=== PATIENT | male | born 1950 ===

== ENCOUNTER 2018-05-16 21:59 | Inpatient (IN) | payer MEDICARE, OTHER ==
--- NOTE | 2018-05-16 22:45 | C.PDOC ---
History Of Present Illness 67 year old male with a Hx of HTN presents to the ER with LUQ pain for the past 2 years that worsens when he drives. He was given antibiotics by his PMD in [facility] Dr. Bustillos(phone# [phone]). Patient was placed on cipro which he completed on 05/05/18. Today he had an outpatient CT done which showed micro perforation. Denies fever, chills, night sweats, constipation, or diarrhea. Note he as told by his PMD Dr. Bustillos to visit the nearest ER for possible admission and IV antibiotics. Time Seen by Provider: 05/16/18 22:33 Chief Complaint (Nursing): Abdominal Pain History Per: Patient History/Exam Limitations: no limitations Onset/Duration Of Symptoms: Days (2 years) Current Symptoms Are (Timing): Still Present Location Of Pain/Discomfort: LUQ Quality Of Discomfort: Unable To Describe Exacerbating Factors: Other (Driving) Alleviating Factors: None Recent travel outside of the [place]: No Past Medical History Reviewed: Historical Data, Nursing Documentation, Vital Signs Vital Signs: Last Vital Signs Temp 97.9 F 05/16/18 22:11 Pulse 68 05/16/18 22:11 Resp 18 05/16/18 22:11 BP 130/81 05/16/18 22:11 Pulse Ox 94 L 05/16/18 22:11 - Medical History PMH: HTN Family History: States: Unknown Family Hx - Social History Hx Tobacco Use: No Hx Alcohol Use: No Hx Substance Use: No - Immunization History Hx Tetanus Toxoid Vaccination: No Hx Influenza Vaccination: No Hx Pneumococcal Vaccination: No Review Of Systems Except As Marked, All Systems Reviewed And Found Negative. Constitutional: Negative for: Fever, Chills, Sweats Eyes: Negative for: Pain, Vision Change ENT: Negative for: Ear Pain, Ear Discharge Cardiovascular: Negative for: Chest Pain, Palpitations Respiratory: Negative for: Cough, Shortness of Breath, SOB with Excertion, Pleuritic Pain Gastrointestinal: Positive for: Abdominal Pain. Negative for: Nausea, Vomiting, Diarrhea, Constipation, Melena, Hematochezia, Hematemesis Genitourinary: Negative for: Dysuria, Incontinence, Hematuria, Penile Discharge Musculoskeletal: Negative for: Neck Pain, Shoulder Pain Skin: Negative for: Rash, Lesions Neurological: Negative for: Weakness, Numbness Psych: Negative for: Anxiety Physical Exam - Physical Exam Appears: Well, Non-toxic Skin: Normal Color, Warm, Dry Head: Atraumatic, Normacephalic Eye(s): bilateral: Normal Inspection, PERRL, EOMI Ear(s): Bilateral: Normal Nose: Normal Oral Mucosa: Moist Tongue: Normal Appearing Lips: Normal Appearing Teeth: Normal Dentition Gingiva: Normal Appearing Throat: Normal, No Erythema, No Exudate Neck: Trachea Midline, Supple, Other (no meningeal signs) Chest: Symmetrical, No Tenderness Cardiovascular: Rhythm Regular Respiratory: Normal Breath Sounds, No Rales, No Rhonchi, No Wheezing Gastrointestinal/Abdominal: Soft, Tenderness (LUQ), No Guarding, No Rebound Back: Normal Inspection, No CVA Tenderness, No Vertebral Tenderness Extremity: Bilateral: Atraumatic Neurological/Psych: Oriented x3, Normal Speech, Normal Cognition Gait: Steady ED Course And Treatment - Laboratory Results Result Diagrams: 05/16/18 23:16 05/16/18 23:16 O2 Sat by Pulse Oximetry: 94 (Room air) Pulse Ox Interpretation: Normal - CT Scan/US CT abd/pel Other Rad Studies (CT/US): Read By Radiologist, Radiology Report Reviewed CT/US Interpretation: CT SCAN OF THE ABDOMEN AND PELVIS WITH CONTRAST. CLINICAL HISTORY: Left lower quadrant pain. TECHNIQUE: Multiple axial and coronal CT images were obtained through the abdomen and pelvis after administration of intravenous and oral contrast material. COMMENTS: Diffuse thickening of the sigmoid colon. Colonic diverticulosis. Small sliding hiatal hernia. The liver is of uniform attenuation without mass or defect. There is no intra or extrahepatic biliary ductal dilatation. The spleen is normal. The gallbladder is within normal limits. The pancreas is of normal contour and attenuation characteristics. There is no evidence of adrenal mass. Both kidneys demonstrate prompt and equal nephrograms. The kidneys are normal in size, shape and configuration. There is no evidence of renal or ureteral mass. No renal or ureteral calculi are identified. There is no hydroureter or hydronephrosis. No evidence for appendicitis. No evidence for small or large bowel obstruction. There is no evidence of abdominal ascites or lymphadenopathy. There is no evidence of intrinsic or extrinsic bladder mass. There is no pelvic ascites or lymphadenopathy. Mild prostatomegaly. Images of the lung bases show no evidence of pleural or parenchymal mass. There are no pleural effusions. The bony structures are free of lytic or blastic lesions. IMPRESSION: Uncomplicate d sigmoid diverticulitis/colitis. Medical Decision Making Medical Decision Makin yr old male w/ concern for micro-perforation on CT. Well appearing in NAD. Will seek repeat non-ct w/ contrast given IV contrast used earlier today. He denies any complaints. No chest pain or shortness of breath. No fever, chills or night sweats. Spoke with Dr. Bustillos in regards to outpatient CT results, he sent a copy which showed acute diverticulitis with small contained perforation and 2.4cm abscess. labs unremarkable. Appreciate consult w/ Dr. Brice: to admit to medicine and to place consult to ID Appreciate consult w/ Dr. Pati Chavez: to admit to his service. Disposition - Disposition Disposition Time: 00:30 Condition: GOOD Forms: [facility] (Mauritian) - Clinical Impression Clinical Impression: Diverticulitis, Intra-abdominal infection - Scribe Statement The provider has reviewed the documentation as recorded by the Scribkathy Angela All medical record entries made by the Oliveribkathy were at my direction and personally dictated by me. I have reviewed the chart and agree that the record accurately reflects my personal performance of the history, physical exam, medical decision making, and the department course for this patient. I have also personally directed, reviewed, and agree with the discharge instructions and disposition.
[2018-05-16] MEDS ORDERED: Sodium Chloride 0.9% 1,000 ML IV SCH (23:00)
[2018-05-16 23:19] LABS: BASO # 0.1 K/uL (0.0-0.2); BASO % 0.7 % (0.0-2.0); EOS # 0.2 K/uL (0.0-0.7); EOS % 1.9 % (0.0-4.0); LYMPH # 2.4 K/uL (1.0-4.3); LYMPH % 22.7 % (20.0-40.0); MEAN CORPUSCULAR HEMOGLOBIN 27.3 pg (27.0-31.0); MEAN CORPUSCULAR HGB CONC 32.5 g/dL (33.0-37.0); MEAN PLATELET VOLUME 7.9 fL (7.2-11.7); MONO % 9.2 % (0.0-10.0); NEUT # 6.9 K/uL (1.8-7.0); NEUT % 65.5 % (50.0-75.0); RBC 5.49 Mil/uL (4.40-5.90); RED CELL DISTRIBUTION WIDTH 14.9 % (11.5-14.5); WHITE BLOOD COUNT 10.5 K/uL (4.8-10.8)
[2018-05-16 23:31] LABS: ALB/GLOB RATIO 1.3 (1.0-2.1); ALBUMIN 3.6 g/dL (3.5-5.0); ALT/SGPT 31 U/L (21-72); AST/SGOT 21 U/L (17-59); BLOOD UREA NITROGEN 18 mg/dL (9-20); CALCIUM 8.7 mg/dl (8.6-10.4); GFR NON-AFRICAN AMERICAN > 60; LIPASE 46 U/L (23-300)
[2018-05-16] MEDS ORDERED: Ciprofloxacin 400mg/200ml D5W 400 MG/200 ML BAG IVPB STA (23:35)
[2018-05-16] MEDS ORDERED: metroNIDAZOLE IV 500 mg/100 ml 500 MG/100 ML BAG IVPB STA (23:35)
[2018-05-16 23:41] LABS: VENOUS BLOOD GAS BASE EXCESS 1.9 mmol/L (0.0-2.0); VENOUS BLOOD GAS PCO2 41 mmHg (40-60); VENOUS BLOOD GAS PO2 56 mm/Hg (30-55); VENOUS BLOOD PH 7.42 (7.32-7.43)
[2018-05-17] MEDS ORDERED: Ciprofloxacin 400mg/200ml D5W 400 MG/200 ML BAG IVPB ONE (00:25)
[2018-05-17] MEDS ORDERED: metroNIDAZOLE IV 500 mg/100 ml 500 MG/100 ML BAG ONE ×2 (00:25→06:07)
[2018-05-17] MEDS ORDERED: Ciprofloxacin 400mg/200ml D5W 400 MG/200 ML BAG IVPB SCH (06:00)
[2018-05-17] MEDS ORDERED: Dextrose 5%/0.9% NS 1,000 ML IV SCH (06:00)
[2018-05-17] MEDS: metroNIDAZOLE IV 500 mg/100 ml 500 MG/100 ML BAG IVPB SCH ×3 (06:10→22:41)
--- NOTE | 2018-05-17 09:42 | CP.PCM.CON ---
<JesusamericaglendyOchoa - Last Filed: 05/17/18 14:05> History of Present Illness - History of Present Illness History of Present Illness: GI Fellow PGY4, Consult note. Alex Bonner is a very pleasant 67M who presented to ED for CT findings of diverticulitis and possible need for IV Abx. He tells me he has been complaining of mild abdominal discomfort of the LUQ for 2 years, made worse with sitting in his truck and relieved with laying on his back. He denies acid reflux, pain with eating, pain with BMs, blood in stool, change in weight, constipation. He is not complaining of abdominal pain at this time, no fevers, nausea or vomiting. Work-up showed CT evidence of diverticulitis, uncomplicated. PMHx - Obesity, HTN PSHx - EGD 2 years ago in [place], reports no abnormal findings. Reports colonoscopy 2-3 years ago, normal. FMHx - Denies stomach, colon cancer, liver problems. SocHx - Denies smoking, alcohol. 12pt ROS completed and negative except for above. Past Patient History - Past Social History Smoking Status: Never Smoked - CARDIAC Hx Hypertension: Yes - MUSCULOSKELETAL/RHEUMATOLOGICAL Hx Musculoskeletal Disorders: Yes Other/Comment: Rt knee surgery 2016 - PSYCHIATRIC Hx Substance Use: No - SURGICAL HISTORY Hx Surgeries: No - ANESTHESIA Hx Anesthesia: Yes Hx Anesthesia Reactions: No Meds Allergies/Adverse Reactions: Allergies Allergy/AdvReac Type Severity Reaction Status Date / Time No Known Allergies Allergy Verified 05/16/18 22:18 - Medications Medications: Current Medications Dextrose/Sodium Chloride (Dextrose 5%/0.9% Ns 1000 Ml) 1,000 mls @ 100 mls/hr IV .Q10H ALICIA Last Admin: 05/17/18 06:08 Dose: 100 mls/hr Metronidazole (Flagyl) 500 mg in 100 mls @ 100 mls/hr IVPB Q8H ALICIA; Protocol Last Admin: 05/17/18 06:10 Dose: 100 mls/hr Ciprofloxacin (Cipro 400mg/200ml Dsw) 400 mg in 200 mls @ 133 mls/hr IVPB Q12H ALICIA; Protocol Pantoprazole Sodium (Protonix Inj) 40 mg IVP DAILY ALICIA Physical Exam - Constitutional Appears: Non-toxic, No Acute Distress - Head Exam Head Exam: ATRAUMATIC, NORMAL INSPECTION - Eye Exam Eye Exam: EOMI, Normal appearance - ENT Exam ENT Exam: Mucous Membranes Moist, Normal Exam - Respiratory Exam Respiratory Exam: Clear to Auscultation Bilateral, NORMAL BREATHING PATTERN - Cardiovascular Exam Cardiovascular Exam: REGULAR RHYTHM, +S1, +S2 - GI/Abdominal Exam GI & Abdominal Exam: Normal Bowel Sounds, Soft. absent: Guarding, Organomegaly, Rebound, Tenderness - Extremities Exam Extremities exam: Positive for: normal inspection. Negative for: pedal edema - Neurological Exam Neurological exam: Alert, CN II-XII Intact, Oriented x3 - Psychiatric Exam Psychiatric exam: Normal Affect, Normal Mood - Skin Skin Exam: Normal Color, Warm Results - Vital Signs Recent Vital Signs: Last Vital Signs Temp 98.6 F 05/17/18 06:26 Pulse 58 L 05/17/18 06:26 Resp 18 05/17/18 06:26 BP 136/81 05/17/18 06:26 Pulse Ox 98 05/17/18 06:26 - Labs Result Diagrams: 05/16/18 23:16 05/16/18 23:16 Labs: Laboratory Results - last 24 hr 05/16/18 05/16/18 05/16/18 23:16 23:16 23:38 WBC 10.5 RBC 5.49 Hgb 15.0 Hct 46.1 MCV 84.0 MCH 27.3 MCHC 32.5 L RDW 14.9 H Plt Count 277 MPV 7.9 Neut % (Auto) 65.5 Lymph % (Auto) 22.7 [place] % (Auto) 9.2 Eos % (Auto) 1.9 Baso % (Auto) 0.7 Neut # (Auto) 6.9 Lymph # (Auto) 2.4 [place] # (Auto) 1.0 H Eos # (Auto) 0.2 Baso # (Auto) 0.1 pO2 56 H VBG pH 7.42 VBG pCO2 41 VBG HCO3 26.2 VBG Total CO2 27.9 VBG O2 Sat (Calc) 94.2 H VBG Base Excess 1.9 VBG Potassium 3.6 Glucose 206 H Lactate 1.5 Sodium 136 136.0 Potassium 3.9 Chloride 102 103.0 Carbon Dioxide 27 Anion Gap 11 BUN 18 Creatinine 0.8 Est GFR ( Amer) > 60 Est GFR (Non-Af Amer) > 60 Random Glucose 205 H Calcium 8.7 Total Bilirubin 0.3 AST 21 ALT 31 Alkaline Phosphatase 87 Total Protein 6.4 Albumin 3.6 Globulin 2.8 Albumin/Globulin Ratio 1.3 Lipase 46 Venous Blood Potassium 3.6 Assessment & Plan - Assessment and Plan (Free Text) Assessment: #Suspected Uncomplicated diverticulitis, no significant pain #Abnormal CT #HTN #Obesity PLAN: -CT reviewed, evidence of diffuse diverticulosis and some evidence of wall thickening. No obvious fat stranding, but CT is poor quality given body habitus. -Continue 7-10day coarse antibiotics -Patient should have colonoscopy in 4-8 weeks to evaluate for cause of chronic abdominal pain and abnormal CT findings, r/o colon CA. -OK to start Liquid diet and advance as tolerated. -No endoscopic procedures planned. - Date & Time Date: 05/17/18 Time: 09:43 <Marquise Schroeder Y - Last Filed: 05/17/18 15:08> Meds - Medications Medications: Current Medications Dextrose/Sodium Chloride (Dextrose 5%/0.9% Ns 1000 Ml) 1,000 mls @ 100 mls/hr IV .Q10H ALICIA Last Admin: 05/17/18 06:08 Dose: 100 mls/hr Metronidazole (Flagyl) 500 mg in 100 mls @ 100 mls/hr IVPB Q8H ALICIA; Protocol Last Admin: 05/17/18 14:51 Dose: 100 mls/hr Ciprofloxacin (Cipro 400mg/200ml Dsw) 400 mg in 200 mls @ 133 mls/hr IVPB Q12H ALICIA; Protocol Last Admin: 05/17/18 12:44 Dose: 133 mls/hr Pantoprazole Sodium (Protonix Inj) 40 mg IVP DAILY ALICIA Last Admin: 05/17/18 09:54 Dose: 40 mg Results - Vital Signs Recent Vital Signs: Last Vital Signs Temp 98.6 F 05/17/18 06:26 Pulse 58 L 05/17/18 06:26 Resp 18 05/17/18 06:26 BP 136/81 05/17/18 06:26 Pulse Ox 98 05/17/18 06:26 - Labs Result Diagrams: 05/16/18 23:16 05/16/18 23:16 Labs: Laboratory Results - last 24 hr 05/16/18 05/16/18 05/16/18 23:16 23:16 23:38 WBC 10.5 RBC 5.49 Hgb 15.0 Hct 46.1 MCV 84.0 MCH 27.3 MCHC 32.5 L RDW 14.9 H Plt Count 277 MPV 7.9 Neut % (Auto) 65.5 Lymph % (Auto) 22.7 [place] % (Auto) 9.2 Eos % (Auto) 1.9 Baso % (Auto) 0.7 Neut # (Auto) 6.9 Lymph # (Auto) 2.4 [place] # (Auto) 1.0 H Eos # (Auto) 0.2 Baso # (Auto) 0.1 pO2 56 H VBG pH 7.42 VBG pCO2 41 VBG HCO3 26.2 VBG Total CO2 27.9 VBG O2 Sat (Calc) 94.2 H VBG Base Excess 1.9 VBG Potassium 3.6 Glucose 206 H Lactate 1.5 Sodium 136 136.0 Potassium 3.9 Chloride 102 103.0 Carbon Dioxide 27 Anion Gap 11 BUN 18 Creatinine 0.8 Est GFR ( Amer) > 60 Est GFR (Non-Af Amer) > 60 Random Glucose 205 H Calcium 8.7 Total Bilirubin 0.3 AST 21 ALT 31 Alkaline Phosphatase 87 Total Protein 6.4 Albumin 3.6 Globulin 2.8 Albumin/Globulin Ratio 1.3 Lipase 46 Venous Blood Potassium 3.6 Attending/Attestation - Attestation I have personally seen and examined this patient.: Yes I have fully participated in the care of the patient.: Yes I have reviewed all pertinent clinical information: Yes Notes (Text): 05/17/18 15:02 I have seen and examined patient with GI fellow. Agree with above documentation with the following additions. In brief, this is a 67 year old male with history of obesity (BMI 45), HTN, who presents to hospital with complaint of abdominal pain. He reports ongoing intermittent left sided abdominal pain for the past two years which got worse over the past one week. He reports sharp LLQ abdominal pain, 7/10 intensity, with associated loose bowel movements. He had outpatient CT imaging concerning for diverticulitis and was sent to hospital for further management. He denies nausea, vomiting, fever/chills, weight loss, rectal bleeding. He does report having multiple loose bowel movements since beginning antibiotic therapy. He had an EGD/colonoscopy 3 years ago which were normal as per patient. Review of vitals from today are normal. Obesity HTN Abdominal pain Acute rectosigmoid uncomplicated diverticulitis - present on CT imaging, revie wed by me - Clear liquid diet as tolerated - Continue with antibiotic therapy - Continue with IVF hydration, supportive care - Patient would benefit from elective outpatient colonoscopy 6-8 weeks following resolution of acute symptoms. Will continue to monitor patient clinical course.
--- NOTE | 2018-05-17 11:10 | CT ---
PROCEDURE: CT Abdomen and Pelvis without Oral or IV contrast. HISTORY: "microperferation from outside ct" abd pain x2 yr COMPARISON: None available. TECHNIQUE: Contiguous axial images of the abdomen and pelvis. No oral or IV contrast administered. Coronal and Sagittal reformats generated and reviewed. Radiation dose: Total exam DLP = 1187.74 mGy-cm. This CT exam was performed using one or more of the following dose reduction techniques: Automated exposure control, adjustment of the mA and/or kV according to patient size, and/or use of iterative reconstruction technique. FINDINGS: There is limited evaluation of the solid organs without the administration of IV contrast. LOWER THORAX: Bibasilar atelectasis. No visible pleural effusion or pneumothorax. Small hiatal hernia. LIVER: Unremarkable unenhanced appearance. GALLBLADDER AND BILE DUCTS: Unremarkable unenhanced appearance. PANCREAS: Atrophy. SPLEEN: Unremarkable unenhanced appearance. ADRENALS: Unremarkable unenhanced appearance. KIDNEYS AND URETERS: No hydronephrosis or obstructing renal calculus. BLADDER: The urinary bladder appears unremarkable. REPRODUCTIVE: Unremarkable. APPENDIX: The appendix appears within normal limits of caliber. No secondary signs of acute appendicitis. BOWEL: The stomach is nondistended. Lack of oral contrast limits evaluation for bowel pathology. The bowel loops appear within normal limits of caliber without evidence of intestinal obstruction. Circumferential thickening of the rectosigmoid colon can be seen in setting of chronic diverticulosis. Mild associated inflammatory changes are evident which appear consistent with acute diverticulitis. PERITONEUM: No significant free fluid. No definite free air. LYMPH NODES: No bulky lymphadenopathy identified. VASCULATURE: No significant atherosclerotic calcifications of the aorta evident. No aortic aneurysm. BONES: Degenerative changes. OTHER FINDINGS: Small fat containing umbilical hernia. IMPRESSION: Circumferential thickening of the rectosigmoid colon can be seen in setting of chronic diverticulosis. Mild associated inflammatory changes are evident which appear consistent with acute diverticulitis. Correlate clinically. Mild bibasilar atelectasis. Additional findings as above. Preliminary impression was provided by [employer]
[2018-05-17] MEDS: Ciprofloxacin 400mg/200ml D5W 400 MG/200 ML BAG IVPB SCH (12:44)
--- NOTE | 2018-05-17 15:52 | CP.PCM.CON ---
History of Present Illness - History of Present Illness History of Present Illness: 67M who presented to ED for CT findings of diverticulitis and possible need for IV Abx. Work-up showed CT evidence of diverticulitis, uncomplicated. IV rx ordered Cont rx PMHx - Obesity, HTN PSHx - EGD 2 years ago in [place], reports no abnormal findings. Reports colonoscopy 2-3 years ago, normal. FMHx - Denies stomach, colon cancer, liver problems. SocHx - Denies smoking, alcohol. 12pt ROS completed and negative except for above. Review of Systems - Review of Systems All systems: reviewed and no additional remarkable complaints except Past Patient History - Past Social History Smoking Status: Never Smoked - CARDIAC Hx Hypertension: Yes - MUSCULOSKELETAL/RHEUMATOLOGICAL Hx Musculoskeletal Disorders: Yes Other/Comment: Rt knee surgery 2016 - PSYCHIATRIC Hx Substance Use: No - SURGICAL HISTORY Hx Surgeries: No - ANESTHESIA Hx Anesthesia: Yes Hx Anesthesia Reactions: No Meds Allergies/Adverse Reactions: Allergies Allergy/AdvReac Type Severity Reaction Status Date / Time No Known Allergies Allergy Verified 05/16/18 22:18 - Medications Medications: Current Medications Dextrose/Sodium Chloride (Dextrose 5%/0.9% Ns 1000 Ml) 1,000 mls @ 100 mls/hr IV .Q10H ALICIA Last Admin: 05/17/18 06:08 Dose: 100 mls/hr Metronidazole (Flagyl) 500 mg in 100 mls @ 100 mls/hr IVPB Q8H ALICIA; Protocol Last Admin: 05/17/18 14:51 Dose: 100 mls/hr Ciprofloxacin (Cipro 400mg/200ml Dsw) 400 mg in 200 mls @ 133 mls/hr IVPB Q12H ALICIA; Protocol Last Admin: 05/17/18 12:44 Dose: 133 mls/hr Dextrose/Sodium Chloride (Dextrose 5%/0.45% Ns 1000 Ml) 1,000 mls @ 100 mls/hr IV .Q10H ALICIA Pantoprazole Sodium (Protonix Inj) 40 mg IVP DAILY ALICIA Last Admin: 05/17/18 09:54 Dose: 40 mg Physical Exam - Constitutional Appears: Well - Head Exam Head Exam: ATRAUMATIC, NORMAL INSPECTION, NORMOCEPHALIC - Eye Exam Eye Exam: EOMI, Normal appearance, PERRL Pupil Exam: NORMAL ACCOMODATION, PERRL - ENT Exam ENT Exam: Mucous Membranes Moist, Normal Exam - Neck Exam Neck exam: Positive for: Normal Inspection - Respiratory Exam Respiratory Exam: Clear to Auscultation Bilateral, NORMAL BREATHING PATTERN - Cardiovascular Exam Cardiovascular Exam: REGULAR RHYTHM - GI/Abdominal Exam GI & Abdominal Exam: Diminished Bowel Sounds, Guarding, Soft, Tenderness. absent: Rebound, Rigid - Rectal Exam Rectal Exam: NORMAL INSPECTION - Extremities Exam Extremities exam: Positive for: normal inspection - Back Exam Back exam: NORMAL INSPECTION - Neurological Exam Neurological exam: Alert, CN II-XII Intact, Normal Gait, Oriented x3, Reflexes Normal - Psychiatric Exam Psychiatric exam: Normal Affect, Normal Mood - Skin Skin Exam: Dry, Intact, Normal Color, Warm Results - Vital Signs Recent Vital Signs: Last Vital Signs Temp 98.6 F 05/17/18 06:26 Pulse 58 L 05/17/18 06:26 Resp 18 05/17/18 06:26 BP 136/81 05/17/18 06:26 Pulse Ox 98 05/17/18 06:26 - Labs Result Diagrams: 05/16/18 23:16 05/16/18 23:16 Labs: Laboratory Results - last 24 hr 05/16/18 05/16/18 05/16/18 23:16 23:16 23:38 WBC 10.5 RBC 5.49 Hgb 15.0 Hct 46.1 MCV 84.0 MCH 27.3 MCHC 32.5 L RDW 14.9 H Plt Count 277 MPV 7.9 Neut % (Auto) 65.5 Lymph % (Auto) 22.7 [place] % (Auto) 9.2 Eos % (Auto) 1.9 Baso % (Auto) 0.7 Neut # (Auto) 6.9 Lymph # (Auto) 2.4 [place] # (Auto) 1.0 H Eos # (Auto) 0.2 Baso # (Auto) 0.1 pO2 56 H VBG pH 7.42 VBG pCO2 41 VBG HCO3 26.2 VBG Total CO2 27.9 VBG O2 Sat (Calc) 94.2 H VBG Base Excess 1.9 VBG Potassium 3.6 Glucose 206 H Lactate 1.5 Sodium 136 136.0 Potassium 3.9 Chloride 102 103.0 Carbon Dioxide 27 Anion Gap 11 BUN 18 Creatinine 0.8 Est GFR ( Amer) > 60 Est GFR (Non-Af Amer) > 60 Random Glucose 205 H Calcium 8.7 Total Bilirubin 0.3 AST 21 ALT 31 Alkaline Phosphatase 87 Total Protein 6.4 Albumin 3.6 Globulin 2.8 Albumin/Globulin Ratio 1.3 Lipase 46 Venous Blood Potassium 3.6 Assessment & Plan (1) Diverticulitis Status: Acute (2) Intra-abdominal infection Status: Acute - Assessment and Plan (Free Text) Assessment: cont IV antibiotics for now will follow
[2018-05-17 15:57] LABS: URINE BILIRUBIN NEGATIVE (NEGATIVE); URINE BLOOD NEGATIVE (NEGATIVE); URINE CLARITY Clear (Clear); URINE COLOR Yellow (YELLOW); URINE GLUCOSE (UA) NORMAL (Normal); URINE LEUKOCYTE ESTERASE NEG Leu/uL (Negative); URINE PROTEIN NEGATIVE (NEGATIVE); URINE UROBILINOGEN NORMAL mg/dL (0.2-1.0)
[2018-05-17] MEDS: Dextrose 5%/0.45% NS 1,000 ML IV SCH (16:30)
--- NOTE | 2018-05-17 18:13 | CP.PCM.HP ---
Past Patient History - Past Medical History & Family History Past Medical History?: Yes - Past Social History Smoking Status: Never Smoked - CARDIAC Hx Cardiac Disorders: Yes Hx Hypertension: Yes - PULMONARY Hx Respiratory Disorders: No - NEUROLOGICAL Hx Neurological Disorder: No - HEENT Hx HEENT Problems: No - RENAL Hx Chronic Kidney Disease: No - ENDOCRINE/METABOLIC Hx Endocrine Disorders: No - HEMATOLOGICAL/ONCOLOGICAL Hx Blood Disorders: No - INTEGUMENTARY Hx Dermatological Problems: No - MUSCULOSKELETAL/RHEUMATOLOGICAL Hx Falls: No - GASTROINTESTINAL Hx Gastrointestinal Disorders: No - GENITOURINARY/GYNECOLOGICAL Hx Genitourinary Disorders: No - PSYCHIATRIC Hx Psychophysiologic Disorder: No Hx Substance Use: No - SURGICAL HISTORY Hx Surgeries: Yes Hx Orthopedic Surgery: Yes (Right knee) Other/Comment: EGD and colonoscopy - ANESTHESIA Hx Anesthesia: Yes Hx Anesthesia Reactions: No Hx Malignant Hyperthermia: No Has any member of the family had a problem w/ anesthesia?: No Meds Allergies/Adverse Reactions: Allergies Allergy/AdvReac Type Severity Reaction Status Date / Time No Known Allergies Allergy Verified 05/16/18 22:18 Physical Exam - Constitutional Appears: Well - Head Exam Head Exam: ATRAUMATIC, NORMAL INSPECTION, NORMOCEPHALIC - Eye Exam Eye Exam: EOMI, Normal appearance, PERRL Pupil Exam: NORMAL ACCOMODATION, PERRL - ENT Exam ENT Exam: Mucous Membranes Moist, Normal Exam - Neck Exam Neck exam: Positive for: Normal Inspection - Respiratory Exam Respiratory Exam: Decreased Breath Sounds - Cardiovascular Exam Cardiovascular Exam: REGULAR RHYTHM, +S1, +S2 - GI/Abdominal Exam GI & Abdominal Exam: Diminished Bowel Sounds, Soft - Rectal Exam Rectal Exam: Deferred Results - Vital Signs Recent Vital Signs: Last Vital Signs Temp 98.7 F 05/17/18 16:00 Pulse 61 05/17/18 16:00 Resp 20 05/17/18 16:00 BP 161/79 H 05/17/18 16:00 Pulse Ox 95 05/17/18 16:00 - Labs Result Diagrams: 05/16/18 23:16 05/16/18 23:16 Labs: Laboratory Results - last 24 hr 05/16/18 05/16/18 05/16/18 23:16 23:16 23:38 WBC 10.5 RBC 5.49 Hgb 15.0 Hct 46.1 MCV 84.0 MCH 27.3 MCHC 32.5 L RDW 14.9 H Plt Count 277 MPV 7.9 Neut % (Auto) 65.5 Lymph % (Auto) 22.7 [place] % (Auto) 9.2 Eos % (Auto) 1.9 Baso % (Auto) 0.7 Neut # (Auto) 6.9 Lymph # (Auto) 2.4 [place] # (Auto) 1.0 H Eos # (Auto) 0.2 Baso # (Auto) 0.1 pO2 56 H VBG pH 7.42 VBG pCO2 41 VBG HCO3 26.2 VBG Total CO2 27.9 VBG O2 Sat (Calc) 94.2 H VBG Base Excess 1.9 VBG Potassium 3.6 Glucose 206 H Lactate 1.5 Sodium 136 136.0 Potassium 3.9 Chloride 102 103.0 Carbon Dioxide 27 Anion Gap 11 BUN 18 Creatinine 0.8 Est GFR ( Amer) > 60 Est GFR (Non-Af Amer) > 60 Random Glucose 205 H Calcium 8.7 Total Bilirubin 0.3 AST 21 ALT 31 Alkaline Phosphatase 87 Total Protein 6.4 Albumin 3.6 Globulin 2.8 Albumin/Globulin Ratio 1.3 Lipase 46 Venous Blood Potassium 3.6 Urine Color Urine Clarity Urine pH Ur Specific [place] Urine Protein Urine Glucose (UA) Urine Ketones Urine Blood Urine Nitrate Urine Bilirubin Urine Urobilinogen Ur Leukocyte Esterase Urine WBC (Auto) Urine RBC (Auto) 05/17/18 15:48 WBC RBC Hgb Hct MCV MCH MCHC RDW Plt Count MPV Neut % (Auto) Lymph % (Auto) [place] % (Auto) Eos % (Auto) Baso % (Auto) Neut # (Auto) Lymph # (Auto) [place] # (Auto) Eos # (Auto) Baso # (Auto) pO2 VBG pH VBG pCO2 VBG HCO3 VBG Total CO2 VBG O2 Sat (Calc) VBG Base Excess VBG Potassium Glucose Lactate Sodium Potassium Chloride Carbon Dioxide Anion Gap BUN Creatinine Est GFR ( Amer) Est GFR (Non-Af Amer) Random Glucose Calcium Total Bilirubin AST ALT Alkaline Phosphatase Total Protein Albumin Globulin Albumin/Globulin Ratio Lipase Venous Blood Potassium Urine Color Yellow Urine Clarity Clear Urine pH 5.0 Ur Specific [place] 1.015 Urine Protein Negative Urine Glucose (UA) Normal Urine Ketones Negative Urine Blood Negative Urine Nitrate Negative Urine Bilirubin Negative Urine Urobilinogen Normal Ur Leukocyte Esterase Neg Urine WBC (Auto) < 1 Urine RBC (Auto) < 1
--- NOTE | 2018-05-17 22:09 | CON ---
DATE: 05/16/2018 HISTORY OF PRESENT ILLNESS: This is a 67-year-old male who presents with history of abdominal pain relegated to left upper quadrant noted for the past week. He developed nausea, vomiting, and fever and was seen in the emergency room and underwent a CAT scan. The CAT scan revealed thickening of the rectosigmoid colon with mild associated inflammatory changes associated with diverticulitis. He is now seen in surgical consultation. PAST MEDICAL HISTORY: Significant for hypertension. PAST SURGICAL HISTORY: Negative. FAMILY HISTORY: Noncontributory. REVIEW OF SYSTEMS: Noncontributory. PHYSICAL EXAMINATION: GENERAL: He is a mildly obese middle-aged male, in no acute distress. ABDOMEN: Pertinent physical finding includes very mild left upper quadrant tenderness. There was no left lower quadrant tenderness. There were no other abnormal findings. IMPRESSION: My impression is that the patient has acute rectosigmoid diverticulitis. There was no evidence of abscess, free fluid, or free air noted. He has been placed on IV antibiotics. We will monitor him clinically. He will undergo a repeat CT scan in two days to document improvement. Once again, thank you for this referral. If you have any further question, feel free to contact me. Jose C Brice MD
[2018-05-18] MEDS: Ciprofloxacin 400mg/200ml D5W 400 MG/200 ML BAG IVPB SCH ×2 (00:43→13:06)
[2018-05-18] MEDS: Dextrose 5%/0.45% NS 1,000 ML IV SCH ×2 (00:46→21:03)
[2018-05-18] MEDS: metroNIDAZOLE IV 500 mg/100 ml 500 MG/100 ML BAG IVPB SCH ×3 (05:25→21:03)
--- NOTE | 2018-05-18 08:12 | CP.PCM.PN ---
<Ochoa Cortez - Last Filed: 05/18/18 10:46> Subjective - Date & Time of Evaluation Date of Evaluation: 05/18/18 Time of Evaluation: 08:10 - Subjective Subjective: Patient is doing the same clinically this AM. Denies abdominal pain, nausea vomiting. He has not had a BM in 3 days and he denies passing flatus. He admits he usually has BMs everyday. No fevers. Tolerating CLD. Objective - Vital Signs/Intake and Output Vital Signs (last 24 hours): Temp Pulse Resp BP Pulse Ox 97.8 F 62 20 121/77 96 05/17/18 23:35 05/17/18 23:35 05/17/18 23:35 05/17/18 23:35 05/17/18 23:35 Intake and Output: 05/18/18 05/18/18 06:59 18:59 Intake Total 1500 Balance 1500 - Medications Medications: Current Medications Hydrochlorothiazide (Hydrodiuril) 25 mg PO DAILY [facility] Metronidazole (Flagyl) 500 mg in 100 mls @ 100 mls/hr IVPB Q8H [facility]; Protocol Last Admin: 05/18/18 05:25 Dose: 100 mls/hr Ciprofloxacin (Cipro 400mg/200ml Dsw) 400 mg in 200 mls @ 133 mls/hr IVPB Q12H [facility]; Protocol Last Admin: 05/18/18 00:43 Dose: 133 mls/hr Dextrose/Sodium Chloride (Dextrose 5%/0.45% Ns 1000 Ml) 1,000 mls @ 100 mls/hr IV .Q10H [facility] Last Admin: 05/18/18 00:46 Dose: 100 mls/hr Losartan Potassium (Cozaar) 100 mg PO DAILY [facility] Pantoprazole Sodium (Protonix Inj) 40 mg IVP DAILY [facility] Last Admin: 05/17/18 09:54 Dose: 40 mg - Labs Labs: 05/16/18 23:16 05/16/18 23:16 - Constitutional Appears: Non-toxic, No Acute Distress - Head Exam Head Exam: ATRAUMATIC, NORMAL INSPECTION - Eye Exam Eye Exam: EOMI, Normal appearance - ENT Exam ENT Exam: Mucous Membranes Moist, Normal Exam - Respiratory Exam Respiratory Exam: Clear to Ausculation Bilateral, NORMAL BREATHING PATTERN - Cardiovascular Exam Cardiovascular Exam: REGULAR RHYTHM, +S1, +S2 - GI/Abdominal Exam GI & Abdominal Exam: Soft, Hypoactive Bowel Sounds. absent: Tenderness - Extremities Exam Extremities Exam: Normal Inspection. absent: Pedal Edema - Neurological Exam Neurological Exam: Alert, Awake, Oriented x3 - Psychiatric Exam Psychiatric exam: Normal Affect, Normal Mood - Skin Skin Exam: Normal Color, Warm Assessment and Plan - Assessment and Plan (Free Text) Assessment: #Suspected Uncomplicated diverticulitis, no significant pain #Abnormal CT #HTN #Obesity PLAN: -CT reviewed, evidence of diffuse diverticulosis and some evidence of wall thickening. No obvious fat stranding, but CT is poor quality given body habitus. -Continue 7-10day coarse antibiotics -Patient should have colonoscopy in 6-8 weeks to evaluate for cause of chronic abdominal pain and abnormal CT findings, r/o colon CA. -OK to start low residue diet. -No endoscopic procedures planned. Case discussed with Dr. Schroeder. See attestation. <Marquise Schroeder Y - Last Filed: 05/18/18 12:45> Objective - Vital Signs/Intake and Output Vital Signs (last 24 hours): Temp Pulse Resp BP Pulse Ox 98.2 F 58 L 20 175/75 H 96 05/18/18 07:00 05/18/18 07:00 05/18/18 07:00 05/18/18 07:00 05/18/18 07:00 Intake and Output: 05/18/18 05/18/18 06:59 18:59 Intake Total 1500 Balance 1500 - Medications Medications: Current Medications Hydrochlorothiazide (Hydrodiuril) 25 mg PO DAILY [facility] Last Admin: 05/18/18 10:33 Dose: 25 mg Metronidazole (Flagyl) 500 mg in 100 mls @ 100 mls/hr IVPB Q8H [facility]; Protocol Last Admin: 05/18/18 05:25 Dose: 100 mls/hr Ciprofloxacin (Cipro 400mg/200ml Dsw) 400 mg in 200 mls @ 133 mls/hr IVPB Q12H [facility]; Protocol Last Admin: 05/18/18 00:43 Dose: 133 mls/hr Dextrose/Sodium Chloride (Dextrose 5%/0.45% Ns 1000 Ml) 1,000 mls @ 100 mls/hr IV .Q10H [facility] Last Admin: 05/18/18 00:46 Dose: 100 mls/hr Losartan Potassium (Cozaar) 100 mg PO DAILY [facility] Last Admin: 05/18/18 10:31 Dose: 100 mg Pantoprazole Sodium (Protonix Inj) 40 mg IVP DAILY [facility] Last Admin: 05/18/18 10:31 Dose: 40 mg - Labs Labs: 05/16/18 23:16 05/16/18 23:16 Attending/Attestation - Attestation I have personally seen and examined this patient.: Yes I have fully participated in the care of the patient.: Yes I have reviewed all pertinent clinical information, including history, physical exam and plan: Yes Notes (Text): 05/18/18 12:43 I have seen and examined patient with GI fellow. He is seen sitting comfortably in chair next to bed, appears quite comfortable. He denies abdominal pain, nausea, vomiting, fever/chills. He is tolerating PO liquids without difficulty, asking for his diet to be advanced. He had one small bowel movement this morning. Obesity HTN Abdominal pain - acute sigmoid diverticulitis - Advance diet to low residue as tolerated - Continue with antibiotic therapy - Follow up surgical recommendations - Patient would benefit from elective outpatient colonoscopy within 6-8 weeks following resolution of acute symptoms. No further planned GI intervention, will sign off case. Please reconsult as necessary, thank you.
--- NOTE | 2018-05-18 12:53 | CP.PCM.PN ---
Subjective - Date & Time of Evaluation Date of Evaluation: 05/18/18 Time of Evaluation: 09:45 - Subjective Subjective: clinically same Objective - Vital Signs/Intake and Output Vital Signs (last 24 hours): Temp Pulse Resp BP Pulse Ox 98.2 F 58 L 20 175/75 H 96 05/18/18 07:00 05/18/18 07:00 05/18/18 07:00 05/18/18 07:00 05/18/18 07:00 Intake and Output: 05/18/18 05/18/18 06:59 18:59 Intake Total 1500 Balance 1500 - Medications Medications: Current Medications Hydrochlorothiazide (Hydrodiuril) 25 mg PO DAILY [facility] Last Admin: 05/18/18 10:33 Dose: 25 mg Metronidazole (Flagyl) 500 mg in 100 mls @ 100 mls/hr IVPB Q8H [facility]; Protocol Last Admin: 05/18/18 05:25 Dose: 100 mls/hr Ciprofloxacin (Cipro 400mg/200ml Dsw) 400 mg in 200 mls @ 133 mls/hr IVPB Q12H [facility]; Protocol Last Admin: 05/18/18 00:43 Dose: 133 mls/hr Dextrose/Sodium Chloride (Dextrose 5%/0.45% Ns 1000 Ml) 1,000 mls @ 100 mls/hr IV .Q10H [facility] Last Admin: 05/18/18 00:46 Dose: 100 mls/hr Losartan Potassium (Cozaar) 100 mg PO DAILY [facility] Last Admin: 05/18/18 10:31 Dose: 100 mg Pantoprazole Sodium (Protonix Inj) 40 mg IVP DAILY [facility] Last Admin: 05/18/18 10:31 Dose: 40 mg - Labs Labs: 05/16/18 23:16 05/16/18 23:16
[2018-05-18 16:59] LABS: BASO # 0.1 K/uL (0.0-0.2); BASO % 1.1 % (0.0-2.0); EOS # 0.3 K/uL (0.0-0.7); EOS % 3.9 % (0.0-4.0); HEMOGLOBIN 15.4 g/dL (12.0-18.0); LYMPH % 22.7 % (20.0-40.0); MEAN CORPUSCULAR HEMOGLOBIN 27.1 pg (27.0-31.0); MEAN CORPUSCULAR HGB CONC 32.3 g/dL (33.0-37.0); MONO # 0.8 K/uL (0.0-0.8); MONO % 8.8 % (0.0-10.0); NEUT # 5.7 K/uL (1.8-7.0); NEUT % 63.5 % (50.0-75.0); RBC 5.67 Mil/uL (4.40-5.90)
[2018-05-18 17:14] LABS: BLOOD UREA NITROGEN 10 mg/dL (9-20); CALCIUM 8.3 mg/dl (8.6-10.4); GFR NON-AFRICAN AMERICAN > 60
--- NOTE | 2018-05-18 19:37 | CP.PCM.PN ---
Subjective - Date & Time of Evaluation Date of Evaluation: 05/18/18 Time of Evaluation: 09:00 - Subjective Subjective: no fever or abd pain Objective - Vital Signs/Intake and Output Vital Signs (last 24 hours): Temp Pulse Resp BP Pulse Ox 98.6 F 72 20 101/66 95 05/18/18 15:00 05/18/18 15:00 05/18/18 15:00 05/18/18 15:00 05/18/18 15:00 Intake and Output: 05/18/18 05/19/18 18:59 06:59 Intake Total 1300 Balance 1300 - Medications Medications: Current Medications Hydrochlorothiazide (Hydrodiuril) 25 mg PO DAILY [facility] Last Admin: 05/18/18 10:33 Dose: 25 mg Metronidazole (Flagyl) 500 mg in 100 mls @ 100 mls/hr IVPB Q8H [facility]; Protocol Last Admin: 05/18/18 05:25 Dose: 100 mls/hr Dextrose/Sodium Chloride (Dextrose 5%/0.45% Ns 1000 Ml) 1,000 mls @ 100 mls/hr IV .Q10H [facility] Last Admin: 05/18/18 00:46 Dose: 100 mls/hr Losartan Potassium (Cozaar) 100 mg PO DAILY [facility] Last Admin: 05/18/18 10:31 Dose: 100 mg Pantoprazole Sodium (Protonix Inj) 40 mg IVP DAILY [facility] Last Admin: 05/18/18 10:31 Dose: 40 mg - Labs Labs: 05/18/18 16:53 05/18/18 16:53 - Constitutional Appears: Well - Head Exam Head Exam: ATRAUMATIC, NORMAL INSPECTION, NORMOCEPHALIC - Eye Exam Eye Exam: EOMI, Normal appearance, PERRL Pupil Exam: NORMAL ACCOMODATION, PERRL - ENT Exam ENT Exam: Mucous Membranes Moist, Normal Exam - Neck Exam Neck Exam: Full ROM, Normal Inspection. absent: Lymphadenopathy - Respiratory Exam Respiratory Exam: Clear to Ausculation Bilateral, NORMAL BREATHING PATTERN - Cardiovascular Exam Cardiovascular Exam: REGULAR RHYTHM, +S1, +S2. absent: Murmur - GI/Abdominal Exam GI & Abdominal Exam: Soft, Normal Bowel Sounds. absent: Tenderness - Rectal Exam Rectal Exam: NORMAL INSPECTION - Exam Exam: NORMAL INSPECTION - Extremities Exam Extremities Exam: Full ROM, Normal Capillary Refill, Normal Inspection. absent: Joint Swelling, Pedal Edema - Back Exam Back Exam: NORMAL INSPECTION - Neurological Exam Neurological Exam: Alert, Awake, CN II-XII Intact, Normal Gait, Oriented x3 - Psychiatric Exam Psychiatric exam: Normal Affect, Normal Mood - Skin Skin Exam: Dry, Intact, Normal Color, Warm Assessment and Plan (1) Diverticulitis Status: Acute (2) Intra-abdominal infection Status: Acute - Assessment and Plan (Free Text) Assessment: cont IV rx follow up CT in am Dr Brice on board
[2018-05-19] MEDS: Dextrose 5%/0.45% NS 1,000 ML IV SCH ×2 (04:30→08:00)
[2018-05-19] MEDS: metroNIDAZOLE IV 500 mg/100 ml 500 MG/100 ML BAG IVPB SCH ×3 (06:08→22:40)
[2018-05-19 07:23] LABS: BASO # 0.1 K/uL (0.0-0.2); EOS # 0.3 K/uL (0.0-0.7); EOS % 4.1 % (0.0-4.0); LYMPH # 2.2 K/uL (1.0-4.3); MEAN CELL VOLUME 83.3 fL (80.0-94.0); MEAN CORPUSCULAR HEMOGLOBIN 27.9 pg (27.0-31.0); MEAN CORPUSCULAR HGB CONC 33.5 g/dL (33.0-37.0); MONO # 0.8 K/uL (0.0-0.8); MONO % 9.4 % (0.0-10.0); NEUT # 4.8 K/uL (1.8-7.0); NEUT % 58.5 % (50.0-75.0); NRBC % 0.1 % (0.0-2.0); RBC 5.36 Mil/uL (4.40-5.90); RED CELL DISTRIBUTION WIDTH 14.8 % (11.5-14.5); WHITE BLOOD COUNT 8.1 K/uL (4.8-10.8)
[2018-05-19 07:49] LABS: BLOOD UREA NITROGEN 18 mg/dL (9-20); CALCIUM 8.4 mg/dl (8.6-10.4); GFR NON-AFRICAN AMERICAN > 60
[2018-05-19] MEDS ORDERED: Iohexol 240 (50 ml) PO ONE (09:15)
[2018-05-19] MEDS ORDERED: Iodixanol 320 MG/ML 100 ML BOTTLE IV ONE (13:13)
--- NOTE | 2018-05-19 14:19 | CT ---
Date of service: 05/19/2018 PROCEDURE: CT Abdomen and Pelvis with contrast HISTORY: Surveillance of diverticular abcess COMPARISON: 05/16/2018 TECHNIQUE: Contrast dose: 100 mL Visipaque 320 Radiation dose: Total exam DLP = 1416.46 mGy-cm. This CT exam was performed using one or more of the following dose reduction techniques: Automated exposure control, adjustment of the mA and/or kV according to patient size, and/or use of iterative reconstruction technique. FINDINGS: LOWER THORAX: Small left Bochdalek's hernia containing only retroperitoneal fat. No infiltrate/effusion. Bilateral gynecomastia noted, right greater than left. LIVER: Unremarkable. No gross lesion or ductal dilatation. GALLBLADDER AND BILE DUCTS: Unremarkable. PANCREAS: Unremarkable. No gross lesion or ductal dilatation. SPLEEN: Unremarkable. ADRENALS: Unremarkable. No mass. KIDNEYS AND URETERS: Unremarkable. No hydronephrosis. No solid mass. VASCULATURE: Unremarkable. No aortic aneurysm. No aortic atherosclerotic calcification or mural plaque present. BOWEL: Once again, note is made chronic sigmoid diverticulosis with mural thickening. There is focal diverticulitis of the distal sigmoid colon, minimally changed if at all from 05/16/2018. Minimal surrounding inflammatory change and thickening of the adjacent fascia is noted. No abscess. No pneumoperitoneum. No other abnormal bowel loops are identified. APPENDIX: Normal appendix. PERITONEUM: Unremarkable. No free fluid. No free air. LYMPH NODES: Unremarkable. No enlarged lymph nodes. BLADDER: Poorly distended. Grossly unremarkable. REPRODUCTIVE: normal prostate. BONES: No acute fracture. OTHER FINDINGS: None. IMPRESSION: Focal sigmoid diverticulitis essentially unchanged from 05/16/2018. No abscess. No pneumoperitoneum. Chronic sigmoid diverticulosis. Incidental small left Bochdalek's hernia containing only retroperitoneal fat. No other significant abnormality.
--- NOTE | 2018-05-19 19:24 | CP.PCM.PN ---
Subjective - Date & Time of Evaluation Date of Evaluation: 05/19/18 Time of Evaluation: 08:30 - Subjective Subjective: clinically same Objective - Vital Signs/Intake and Output Vital Signs (last 24 hours): Temp Pulse Resp BP Pulse Ox 97.9 F 69 20 126/80 95 05/19/18 16:58 05/19/18 16:58 05/19/18 16:58 05/19/18 16:58 05/19/18 16:58 - Medications Medications: Current Medications Hydrochlorothiazide (Hydrodiuril) 25 mg PO DAILY [facility] Last Admin: 05/19/18 10:14 Dose: 25 mg Metronidazole (Flagyl) 500 mg in 100 mls @ 100 mls/hr IVPB Q8H [facility]; Protocol Last Admin: 05/19/18 14:57 Dose: Not Given Dextrose/Sodium Chloride (Dextrose 5%/0.45% Ns 1000 Ml) 1,000 mls @ 100 mls/hr IV .Q10H [facility] Last Admin: 05/19/18 08:00 Dose: Not Given Losartan Potassium (Cozaar) 100 mg PO DAILY [facility] Last Admin: 05/19/18 10:14 Dose: 100 mg Pantoprazole Sodium (Protonix Inj) 40 mg IVP DAILY [facility] Last Admin: 05/19/18 10:14 Dose: 40 mg - Labs Labs: 05/19/18 07:04 05/19/18 07:04 - Constitutional Appears: Well - Head Exam Head Exam: ATRAUMATIC, NORMAL INSPECTION, NORMOCEPHALIC - Eye Exam Eye Exam: EOMI, Normal appearance, PERRL Pupil Exam: NORMAL ACCOMODATION, PERRL - ENT Exam ENT Exam: Mucous Membranes Moist, Normal Exam - Neck Exam Neck Exam: Full ROM, Normal Inspection. absent: Lymphadenopathy - Respiratory Exam Respiratory Exam: Decreased Breath Sounds - Cardiovascular Exam Cardiovascular Exam: REGULAR RHYTHM, +S1, +S2 - GI/Abdominal Exam GI & Abdominal Exam: Soft, Diminished Bowel Sounds - Rectal Exam Rectal Exam: Deferred
--- NOTE | 2018-05-19 19:28 | CP.PCM.PN ---
Subjective - Date & Time of Evaluation Date of Evaluation: 05/19/18 Time of Evaluation: 07:00 - Subjective Subjective: CT unchanged await surgical follow up Cont IV rx Objective - Vital Signs/Intake and Output Vital Signs (last 24 hours): Temp Pulse Resp BP Pulse Ox 97.9 F 69 20 126/80 95 05/19/18 16:58 05/19/18 16:58 05/19/18 16:58 05/19/18 16:58 05/19/18 16:58 - Medications Medications: Current Medications Hydrochlorothiazide (Hydrodiuril) 25 mg PO DAILY [facility] Last Admin: 05/19/18 10:14 Dose: 25 mg Metronidazole (Flagyl) 500 mg in 100 mls @ 100 mls/hr IVPB Q8H [facility]; Protocol Last Admin: 05/19/18 14:57 Dose: Not Given Dextrose/Sodium Chloride (Dextrose 5%/0.45% Ns 1000 Ml) 1,000 mls @ 100 mls/hr IV .Q10H [facility] Last Admin: 05/19/18 08:00 Dose: Not Given Losartan Potassium (Cozaar) 100 mg PO DAILY [facility] Last Admin: 05/19/18 10:14 Dose: 100 mg Pantoprazole Sodium (Protonix Inj) 40 mg IVP DAILY [facility] Last Admin: 05/19/18 10:14 Dose: 40 mg - Labs Labs: 05/19/18 07:04 05/19/18 07:04 - Constitutional Appears: Well - Head Exam Head Exam: ATRAUMATIC, NORMAL INSPECTION, NORMOCEPHALIC - Eye Exam Eye Exam: EOMI, Normal appearance, PERRL Pupil Exam: NORMAL ACCOMODATION, PERRL - ENT Exam ENT Exam: Mucous Membranes Moist, Normal Exam - Neck Exam Neck Exam: Full ROM, Normal Inspection. absent: Lymphadenopathy - Respiratory Exam Respiratory Exam: Clear to Ausculation Bilateral, NORMAL BREATHING PATTERN - Cardiovascular Exam Cardiovascular Exam: REGULAR RHYTHM, +S1, +S2. absent: Murmur - GI/Abdominal Exam GI & Abdominal Exam: Soft, Normal Bowel Sounds. absent: Tenderness - Rectal Exam Rectal Exam: NORMAL INSPECTION - Exam Exam: Circumcision, NORMAL INSPECTION External exam: NORMAL EXTERNAL EXAM Speculum exam: NORMAL SPECULUM EXAM Bimanual exam: NORMAL BIMANUAL EXAM - Extremities Exam Extremities Exam: Full ROM, Normal Capillary Refill, Normal Inspection. absent: Joint Swelling, Pedal Edema - Back Exam Back Exam: NORMAL INSPECTION - Neurological Exam Neurological Exam: Alert, Awake, CN II-XII Intact, Normal Gait, Oriented x3 - Psychiatric Exam Psychiatric exam: Normal Affect, Normal Mood - Skin Skin Exam: Dry, Intact, Normal Color, Warm Assessment and Plan (1) Diverticulitis Status: Acute (2) Intra-abdominal infection Status: Acute - Assessment and Plan (Free Text) Assessment: cont IV then PO rx for min 14 days Plan: needs colonoscopy
[2018-05-20] MEDS: Dextrose 5%/0.45% NS 1,000 ML IV SCH ×2 (03:45→13:45)
[2018-05-20] MEDS: metroNIDAZOLE IV 500 mg/100 ml 500 MG/100 ML BAG IVPB SCH ×2 (05:47→14:45)
[2018-05-20 08:07] VITALS: BP 131/82; PULSE 67; RESP 20; TEMP 98; O2SAT 96
--- NOTE | 2018-05-20 13:47 | CP.PCM.PN ---
Subjective - Date & Time of Evaluation Date of Evaluation: 05/20/18 Time of Evaluation: 08:15 - Subjective Subjective: clinically same Objective - Vital Signs/Intake and Output Vital Signs (last 24 hours): Temp Pulse Resp BP Pulse Ox 98.0 F 67 20 131/82 96 05/20/18 08:06 05/20/18 08:06 05/20/18 08:06 05/20/18 08:06 05/20/18 08:06 Intake and Output: 05/20/18 05/20/18 06:59 18:59 Intake Total 400 Balance 400 - Medications Medications: Current Medications Hydrochlorothiazide (Hydrodiuril) 25 mg PO DAILY [facility] Last Admin: 05/20/18 10:47 Dose: 25 mg Metronidazole (Flagyl) 500 mg in 100 mls @ 100 mls/hr IVPB Q8H [facility]; Protocol Last Admin: 05/20/18 05:47 Dose: 100 mls/hr Dextrose/Sodium Chloride (Dextrose 5%/0.45% Ns 1000 Ml) 1,000 mls @ 100 mls/hr IV .Q10H [facility] Last Admin: 05/20/18 03:45 Dose: Not Given Losartan Potassium (Cozaar) 100 mg PO DAILY [facility] Last Admin: 05/20/18 10:47 Dose: 100 mg Pantoprazole Sodium (Protonix Inj) 40 mg IVP DAILY [facility] Last Admin: 05/19/18 10:14 Dose: 40 mg - Labs Labs: 05/19/18 07:04 05/19/18 07:04 - Constitutional Appears: Well - Head Exam Head Exam: ATRAUMATIC, NORMAL INSPECTION, NORMOCEPHALIC - Eye Exam Eye Exam: EOMI, Normal appearance, PERRL Pupil Exam: NORMAL ACCOMODATION, PERRL - ENT Exam ENT Exam: Mucous Membranes Moist, Normal Exam - Neck Exam Neck Exam: Full ROM, Normal Inspection. absent: Lymphadenopathy - Respiratory Exam Respiratory Exam: Decreased Breath Sounds - Cardiovascular Exam Cardiovascular Exam: REGULAR RHYTHM, +S1, +S2 - GI/Abdominal Exam GI & Abdominal Exam: Soft, Diminished Bowel Sounds - Rectal Exam Rectal Exam: Deferred
== END 2018-05-20 16:40 | disposition home or self-care (01) | DRG 392 ==
LOC: C.ER 21:59 → C.9E 23:47 → C.5S 05-17 06:11
PROVIDERS: ADMIT Internal Medicine Nephrology; ATTEND Internal Medicine Nephrology
DX: K57.32 Diverticulitis of large intestine without perforation or abscess without bleeding (principal); Z68.42 Body mass index [BMI] 45.0-49.9, adult; E66.9 Obesity, unspecified; I10 Essential (primary) hypertension